=== PATIENT | female | born 1955 ===

== ENCOUNTER 2017-02-14 09:31 | Observation (INO) | payer OTHER ==
[2017-02-14 09:31] VITALS: BMI 31.8
--- NOTE | 2017-02-14 09:48 | C.PDOC ---
History Of Present Illness 61 year old female presents to the ED with complaints of mid-sternal chest pain that radiates to her neck since 3 AM this morning. Patient states the pain is constant, non-excertional, and fluctuates in severity. She also notes pain worsened while at work this morning and is now experiencing mild SOB. Patient had a blood clot after a knee replacement a few years ago and was taking Coumadin for six months. She denies any other complaints at this time. Chief Complaint (Nursing): Chest Pain History Per: Patient History/Exam Limitations: no limitations Onset/Duration Of Symptoms: Hrs (since 3am ), Intermittent Episodes Current Symptoms Are (Timing): Still Present Associated Symptoms: denies: Nausea, Dyspnea, Diaphoresis, Syncope Recent travel outside of the [place]: No Past Medical History Reviewed: Historical Data, Nursing Documentation, Vital Signs Vital Signs: Last Vital Signs Temp 98.4 F 02/14/17 15:21 Pulse 68 02/14/17 15:21 Resp 18 02/14/17 15:21 BP 118/48 L 02/14/17 15:21 Pulse Ox 97 02/14/17 15:21 - Medical History PMH: Arthritis, Asthma (NEVER HOSPITALIZED/seasonal), HTN, Hypercholesterolemia , Malignancy (ovarian), Migraine Surgical History: Appendectomy - [facility] Procedures DESTRUCT PERITONEAL TISS (03/11/98) GAIT TRAINING/AMBULAT TREATMENT USING ASSIST EQUIPMENT (06/27/16) HOME MANAGEMENT TREATMENT USING ASSIST EQUIPMENT (06/27/16) INJECT CA CHEMOTHER NEC (05/11/98) INSERTION OF TOTALLY IMPLANTABLE VASC ACCESS DEVIC (11/18/97) MAG. RES. IMAGING OF PELVIS, PROSTATE AND BLADDER (10/14/97) OCCUPATIONAL THERAPY (07/23/14) OTH LYSIS-PERITONEAL ADHES (03/11/98) OTH REMOVE BOTH OVARIES/TUBES (10/14/97) OTHER APPENDECTOMY (10/14/97) OTHER LOCAL DESTRUC SKIN (03/11/98) PACKED CELL TRANSFUSION (10/14/97) PHYSICAL THERAPY NEC (07/23/14) REPLACEMENT OF LEFT KNEE JOINT WITH SYNTH SUB, OPEN APPROACH (06/25/16) SKIN INCIS & FB REMOVAL (07/10/99) THERAPEUTIC EXERCISE TREATMENT OF MUSCULOSK LOW BACK/LE (06/27/16) TOTAL ABD HYSTERECTOMY (10/14/97) TOTAL KNEE REPLACEMENT (07/18/14) VAGINAL REPAIR NEC (03/11/98) VENOUS CATHETERIZATION NEC (11/18/97) Family History: States: Other Other Family History: Non-contributory - Social History Hx Tobacco Use: No Hx Alcohol Use: No Hx Substance Use: No - Immunization History Hx Tetanus Toxoid Vaccination: No Hx Influenza Vaccination: Yes Hx Pneumococcal Vaccination: No Review Of Systems Except As Marked, All Systems Reviewed And Found Negative. Constitutional: Negative for: Fever, Chills Cardiovascular: Positive for: Chest Pain (mid-sternal). Negative for: Palpitations Respiratory: Positive for: Shortness of Breath. Negative for: Cough Gastrointestinal: Negative for: Nausea, Vomiting Musculoskeletal: Positive for: Neck Pain (that radiates from chest pain ) Physical Exam - Physical Exam Appears: Non-toxic, No Acute Distress Skin: Warm, Dry Head: Atraumatic Eye(s): bilateral: Normal Inspection Oral Mucosa: Moist Neck: Normal ROM, No Midline Cervical Tenderness, No Paracervical Tenderness, Supple Chest: Symmetrical, No Deformity, No Tenderness Cardiovascular: Rhythm Regular Respiratory: Normal Breath Sounds, No Accessory Muscle Use, No Rhonchi, No Wheezing Extremity: Normal ROM, No Tenderness Neurological/Psych: Oriented x3 ED Course And Treatment - Laboratory Results Result Diagrams: 02/14/17 10:21 02/14/17 10:21 O2 Sat by Pulse Oximetry: 96 (room air ) Medical Decision Making Medical Decision Making: EKG interpretation: NSR 71, LVH, no acute ischemia. Disposition - Disposition Disposition: HOSPITALIZED Disposition Time: 12:45 Condition: STABLE - Clinical Impression Clinical Impression: Chest pain - Scribe Statement The provider has reviewed the documentation as recorded by the Scribclint Coughlin All medical record entries made by the Sridharibclint were at my direction and personally dictated by me. I have reviewed the chart and agree that the record accurately reflects my personal performance of the history, physical exam, medical decision making, and the department course for this patient. I have also personally directed, reviewed, and agree with the discharge instructions and disposition.
[2017-02-14 10:38] LABS: BASO # 0.1 K/uL (0.0-0.2); BASO % 0.8 % (0.0-2.0); EOS # 0.5 K/uL (0.0-0.7); EOS % 5.6 % (0.0-4.0); HEMOGLOBIN 14.7 g/dL (11.0-16.0); LYMPH # 2.4 K/uL (1.0-4.3); LYMPH % 29.1 % (20.0-40.0); MEAN CELL VOLUME 86.7 fL (81.0-99.0); MEAN CORPUSCULAR HEMOGLOBIN 28.1 pg (27.0-31.0); MEAN CORPUSCULAR HGB CONC 32.4 g/dL (33.0-37.0); MEAN PLATELET VOLUME 6.7 fL (7.2-11.7); MONO # 0.6 K/uL (0.0-0.8); MONO % 7.6 % (0.0-10.0); NEUT # 4.7 K/uL (1.8-7.0); NEUT % 56.9 % (50.0-75.0); RBC 5.22 Mil/uL (3.80-5.20); RED CELL DISTRIBUTION WIDTH 13.9 % (11.5-14.5); WHITE BLOOD COUNT 8.3 K/uL (4.8-10.8)
[2017-02-14 10:48] LABS: ALBUMIN 4.1 g/dL (3.5-5.0)
[2017-02-14 10:51] LABS: ALB/GLOB RATIO 1.1 (1.0-2.1); ALT/SGPT 19 U/L (9-52); AST/SGOT 50 U/L (14-36); BLOOD UREA NITROGEN 13 mg/dL (7-17); GFR AFRICAN-AMERICAN > 60; GFR NON-AFRICAN AMERICAN > 60
--- NOTE | 2017-02-14 11:54 | RAD ---
HISTORY: Chest pain. COMPARISON: 06/14/2016 FINDINGS: LUNGS: No active pulmonary disease. PLEURA: No significant pleural effusion identified, no pneumothorax apparent. CARDIOVASCULAR: No radiographic findings to suggest acute or significant cardiovascular disease. OSSEOUS STRUCTURES: No significant abnormalities. VISUALIZED UPPER ABDOMEN: Normal. OTHER FINDINGS: None. IMPRESSION: No active disease. No significant interval change compared to the prior examination(s).
[2017-02-14] MEDS ORDERED: Albuterol HFA 90 mcg/actuation (8 g) IH PRN (19:00)
[2017-02-14] MEDS ORDERED: Pantoprazole 40 mg EC Tab PO SCH (19:47)
[2017-02-14] MEDS ORDERED: Pneumococcal 23-Valent Vaccine IM ONE (19:51)
[2017-02-14] MEDS ORDERED: Pantoprazole 40 mg EC Tab PO STA (20:18)
[2017-02-14] MEDS ORDERED: Enoxaparin 40 mg Syringe SC ONE (21:00)
--- NOTE | 2017-02-14 21:05 | CP.PCM.CON ---
History of Present Illness - History of Present Illness History of Present Illness: Patient seen and evaluated Admitted for chest pressure MARQUITA x 1 negative Check ECHO Past Patient History - Infectious Disease Hx of Infectious Diseases: None - Tetanus Immunizations Tetanus Immunization: Unknown - Past Medical History & Family History Past Medical History?: Yes - Past Social History Smoking Status: Never Smoked - CARDIAC Hx Cardiac Disorders: Yes Hx Hypercholesterolemia: Yes Hx Hypertension: Yes Other/Comment: DVT AFTER KNEE SURGERY - PULMONARY Hx Respiratory Disorders: Yes Hx Asthma: Yes (NEVER HOSPITALIZED/seasonal) - NEUROLOGICAL Hx Neurological Disorder: Yes Hx Migraine: Yes Hx Vertigo: Yes - HEENT Hx HEENT Problems: Yes Other/Comment: WEAR GLASSES FOR POOR VISION - RENAL Hx Chronic Kidney Disease: No - ENDOCRINE/METABOLIC Hx Endocrine Disorders: No - HEMATOLOGICAL/ONCOLOGICAL Hx Blood Disorders: Yes Hx Blood Transfusions: Yes Hx Blood Transfusion Reaction: No Hx Cancer: Yes (ovarian) Hx Human Immunodeficiency Virus (HIV): No - INTEGUMENTARY Hx Dermatological Problems: No - MUSCULOSKELETAL/RHEUMATOLOGICAL Hx Falls: No - GASTROINTESTINAL Hx Gastrointestinal Disorders: No - GENITOURINARY/GYNECOLOGICAL Hx Genitourinary Disorders: Yes Hx Ovarian Cancer: Yes (1997 S/p TABHSO) - PSYCHIATRIC Hx Substance Use: No - SURGICAL HISTORY Hx Surgeries: Yes Hx Appendectomy: Yes Hx Hysterectomy: Yes Hx Orthopedic Surgery: Yes (bilateral knee replacement) - ANESTHESIA Hx Anesthesia: Yes Hx Anesthesia Reactions: Yes (vomiting) Hx Malignant Hyperthermia: No Has any member of the family had a problem w/ anesthesia?: No Meds Allergies/Adverse Reactions: Allergies Allergy/AdvReac Type Severity Reaction Status Date / Time hydromorphone Allergy SHORTNESS Verified 02/14/17 09:35 OF BREATH - Medications Medications: Current Medications Albuterol (Ventolin Hfa 90 Mcg/Actuation (8 G)) 2 puff IH RQ6 PRN PRN Reason: Shortness of Breath Docusate Sodium (Colace) 100 mg PO BID [facility] Enoxaparin Sodium (Lovenox) 40 mg SC DAILY [facility] Ferrous Sulfate (Feosol) 325 mg PO BID [facility] Hydrochlorothiazide (Microzide) 12.5 mg PO DAILY [facility] Losartan Potassium (Cozaar) 50 mg PO DAILY [facility] Pantoprazole Sodium (Protonix Ec Tab) 40 mg PO DAILY [facility] Rosuvastatin Calcium (Crestor) 10 mg PO HS [facility] Results - Vital Signs Recent Vital Signs: Last Vital Signs Temp 98.3 F 02/14/17 18:41 Pulse 59 L 02/14/17 18:41 Resp 20 02/14/17 18:41 BP 135/70 02/14/17 18:41 Pulse Ox 95 02/14/17 18:41 - Labs Result Diagrams: 02/14/17 10:21 02/14/17 10:21 Labs: Laboratory Results - last 24 hr 02/14/17 17:17 Troponin I < 0.0120
--- NOTE | 2017-02-14 23:15 | CP.PCM.HP ---
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 The patient denies any SOB, any radiation of the pain. She took Tylenol with relief of the pain. She went to work this AM , and the pain reccurred, the patient became nauseous and vomitted once. The patient has no complaint now. ECG reveals a RSR, with no acute ST-T wave change. CXR is WNL. Serum TNI x2 are normal. D-Dimer was also normal. The patient is known to have a HPTN, a hypercholesterolemia, an osteoarthritis with s/p Left and right total knee replacement, a peptic ulcer disease. She denies any cigarette smoking. One brother suffered from a heart attack in his 50's with DM and ESRD. Father and mother had heart disease in their 80's. Patient does not have any recent SOB or chest pain on exertion. Present on Admission - Present on Admission Any Indicators Present on Admission: No Review of Systems - Cardiovascular Cardiovascular: Chest Pain at Rest - Gastrointestinal Gastrointestinal: Abdominal Pain, Vomiting Past Patient History - Infectious Disease Hx of Infectious Diseases: None - Tetanus Immunizations Tetanus Immunization: Unknown - Past Medical History & Family History Past Medical History?: Yes - Past Social History Smoking Status: Never Smoked Alcohol: None Drugs: Denies Home Situation {Lives}: With Family Domestic Violence: Negative - CARDIAC Hx Cardiac Disorders: Yes Hx Hypercholesterolemia: Yes Hx Hypertension: Yes Other/Comment: DVT AFTER KNEE SURGERY - PULMONARY Hx Respiratory Disorders: Yes Hx Asthma: Yes (NEVER HOSPITALIZED/seasonal) - NEUROLOGICAL Hx Neurological Disorder: Yes Hx Migraine: Yes Hx Vertigo: Yes - HEENT Hx HEENT Problems: Yes Other/Comment: WEAR GLASSES FOR POOR VISION - RENAL Hx Chronic Kidney Disease: No - ENDOCRINE/METABOLIC Hx Endocrine Disorders: No - HEMATOLOGICAL/ONCOLOGICAL Hx Blood Disorders: Yes Hx Blood Transfusions: Yes Hx Blood Transfusion Reaction: No Hx Cancer: Yes (ovarian) Hx Human Immunodeficiency Virus (HIV): No - INTEGUMENTARY Hx Dermatological Problems: No - MUSCULOSKELETAL/RHEUMATOLOGICAL Hx Falls: No - GASTROINTESTINAL Hx Gastrointestinal Disorders: No Hx Gastroesophageal Reflux: Yes - GENITOURINARY/GYNECOLOGICAL Hx Genitourinary Disorders: Yes Hx Ovarian Cancer: Yes (1997 S/p TABO) - PSYCHIATRIC Hx Substance Use: No - SURGICAL HISTORY Hx Surgeries: Yes Hx Appendectomy: Yes Hx Hysterectomy: Yes Hx Orthopedic Surgery: Yes (bilateral knee replacement) - ANESTHESIA Hx Anesthesia: Yes Hx Anesthesia Reactions: Yes (vomiting) Hx Malignant Hyperthermia: No Has any member of the family had a problem w/ anesthesia?: No Meds Allergies/Adverse Reactions: Allergies Allergy/AdvReac Type Severity Reaction Status Date / Time hydromorphone Allergy SHORTNESS Verified 02/14/17 09:35 OF BREATH Physical Exam - Constitutional Appears: No Acute Distress - Head Exam Head Exam: NORMAL INSPECTION - Eye Exam Eye Exam: Normal appearance - ENT Exam ENT Exam: Normal Exam - Neck Exam Neck exam: Positive for: Normal Inspection - Respiratory Exam Respiratory Exam: Clear to Auscultation Bilateral - Cardiovascular Exam Cardiovascular Exam: REGULAR RHYTHM - GI/Abdominal Exam GI & Abdominal Exam: Normal Bowel Sounds, Soft - Rectal Exam Rectal Exam: Deferred - Exam Exam: NORMAL INSPECTION - Extremities Exam Extremities exam: Positive for: normal inspection, pedal pulses present - Back Exam Back exam: NORMAL INSPECTION - Neurological Exam Neurological exam: Alert, CN II-XII Intact, Normal Gait, Oriented x3 - Psychiatric Exam Psychiatric exam: Anxious - Skin Skin Exam: Dry, Intact, Normal Color, Warm Results - Vital Signs Recent Vital Signs: Last Vital Signs Temp 98.3 F 02/14/17 18:41 Pulse 59 L 02/14/17 18:41 Resp 20 02/14/17 18:41 BP 135/70 02/14/17 18:41 Pulse Ox 95 02/14/17 18:41 - Labs Result Diagrams: 02/14/17 10:21 02/14/17 10:21 Labs: Laboratory Results - last 24 hr 02/14/17 17:17 Troponin I < 0.0120 Assessment & Plan (1) Chest pain Assessment and Plan: Observe . Serial ECG's and cardiac enzymes. Try Protonix PO. If CE's are normal , will D/C for an outpatient stress MPI with Dr Oleary. Status: Acute Decision To Admit - Pt Status Changed To: Hospital Disposition Of: Observation - . Bed Request Type: Telemetry Admitting Physician: Kyle Christy
[2017-02-15 06:21] VITALS: RESP 18
[2017-02-15] MEDS ORDERED: Pantoprazole 40 mg EC Tab PO SCH (10:00)
[2017-02-15] MEDS ORDERED: Potassium Chloride 20 mEq ER Tab PO SCH (10:00)
[2017-02-15] MEDS ORDERED: Enoxaparin 40 mg Syringe SC SCH (10:00)
--- NOTE | 2017-02-15 12:33 | CP.PCM.PN ---
Subjective - Date & Time of Evaluation Date of Evaluation: 02/15/17 Time of Evaluation: 12:20 - Subjective Subjective: Pt seen and examined today , chest pain resolved denies any , sob, palpitations , dizziness No overnight events recorded on monitor Troponin x 3 - negative Objective - Vital Signs/Intake and Output Vital Signs (last 24 hours): Temp Pulse Resp BP Pulse Ox 98.1 F 69 18 137/84 97 02/15/17 07:25 02/15/17 10:35 02/15/17 07:25 02/15/17 10:35 02/15/17 07:25 - Medications Medications: Current Medications Albuterol (Ventolin Hfa 90 Mcg/Actuation (8 G)) 2 puff IH RQ6 PRN PRN Reason: Shortness of Breath Docusate Sodium (Colace) 100 mg PO BID [facility] Last Admin: 02/15/17 10:37 Dose: 100 mg Enoxaparin Sodium (Lovenox) 40 mg SC DAILY [facility] Last Admin: 02/15/17 10:39 Dose: Not Given Ferrous Sulfate (Feosol) 325 mg PO BID [facility] Last Admin: 02/15/17 10:37 Dose: 325 mg Hydrochlorothiazide (Microzide) 12.5 mg PO DAILY [facility] Last Admin: 02/15/17 10:37 Dose: 12.5 mg Losartan Potassium (Cozaar) 50 mg PO DAILY [facility] Last Admin: 02/15/17 10:37 Dose: 50 mg Pantoprazole Sodium (Protonix Ec Tab) 40 mg PO DAILY [facility] Last Admin: 02/15/17 10:37 Dose: 40 mg Rosuvastatin Calcium (Crestor) 10 mg PO [facility] Last Admin: 02/14/17 21:54 Dose: 10 mg Assessment and Plan - Assessment and Plan (Free Text) Assessment: A/P 61 yr old female admitted for chest pain cristiano x 3 neg EKG - NSR , no st- t wave changes As per Dr. Christy . pt can be discharged home today and f/u office next week out pt Echo discharge plan discussed with patient , who understands and agrees with plan Pt instructed to returns to ED IF SYMPTOMS RETURNS
[2017-02-15 14:15] VITALS: BP 157/93; PULSE 78; TEMP 98.6; O2SAT 96
--- NOTE | 2017-02-15 15:18 | CP.PCM.PN ---
Subjective - Date & Time of Evaluation Date of Evaluation: 02/15/17 Time of Evaluation: 11:00 - Subjective Subjective: Patient has no complaint. ECG: RSR, no acute change. TNI x 3: WNL. To be discharged home now. To continue all home meds and Pantoprazole 40 mg PO qd. For an outpatient Echo and stress test. Objective - Vital Signs/Intake and Output Vital Signs (last 24 hours): Temp Pulse Resp BP Pulse Ox 98.6 F 78 18 157/93 H 96 02/15/17 13:55 02/15/17 13:55 02/15/17 13:55 02/15/17 13:55 02/15/17 13:55 Intake and Output: 02/15/17 02/15/17 06:59 18:59 Intake Total 400 Balance 400 - Constitutional Appears: No Acute Distress - Head Exam Head Exam: NORMAL INSPECTION - Eye Exam Eye Exam: Normal appearance - ENT Exam ENT Exam: Normal Exam - Neck Exam Neck Exam: Normal Inspection - Respiratory Exam Respiratory Exam: Clear to Ausculation Bilateral, NORMAL BREATHING PATTERN - Cardiovascular Exam Cardiovascular Exam: REGULAR RHYTHM - GI/Abdominal Exam GI & Abdominal Exam: Soft, Normal Bowel Sounds - Rectal Exam Rectal Exam: Deferred - Extremities Exam Extremities Exam: Normal Inspection - Back Exam Back Exam: NORMAL INSPECTION - Neurological Exam Neurological Exam: Alert, Awake, Normal Gait, Oriented x3 - Psychiatric Exam Psychiatric exam: Normal Affect - Skin Skin Exam: Dry, Intact, Normal Color, Warm Assessment and Plan (1) Chest pain Assessment & Plan: For outpatient Echo and stress test. Status: Resolved
--- NOTE | 2017-02-17 10:57 | CARD ---
APPROVED REPORT EKG Measurement Heart [id number] SD [id number] [id number] <Conclusion> Normal sinus rhythm Moderate voltage criteria for LVH, may be normal variant Borderline ECG
--- NOTE | 2017-02-22 07:00 | CARD ---
APPROVED REPORT EKG Measurement Heart [id number] ID [id number] <Conclusion> Normal sinus rhythm Moderate voltage criteria for LVH, may be normal variant Borderline ECG
== END 2017-02-15 14:31 | disposition home or self-care (01) ==
LOC: C.ER 09:31 → C.9E 12:45 → C.6T 17:27
PROVIDERS: ADMIT Internal Medicine Cardiovascular Disease; ATTEND Internal Medicine Cardiovascular Disease
DX: R07.2 Precordial pain (principal); I10 Essential (primary) hypertension; E78.00 Pure hypercholesterolemia, unspecified
CPT/HCPCS: 36415; 71010; 80053; 84484; 85025; 85378; 99285; G0378; J1650